=== PATIENT | male | born 1955 | race Two or more races ===

== ENCOUNTER 2020-08-04 08:49 | Day surgery (SDC) | payer MEDICARE, OTHER ==
[2020-07-31 11:03] VITALS: BMI 24.3
[~2020-08-04 08:49] MED LIST: LACTATED RINGERS 1,000 ML IV SCH; LIDOCAINE 1% (10MG/ML) FOR IV START INTRADERMA PRN
[2020-08-04 10:03] VITALS: TEMP 97
[2020-08-04] MEDS ORDERED: PROPOFOL 10 MG/ML 20 ML VIAL IV ONE (10:18)
--- NOTE | 2020-08-04 10:22 | P.GSHP ---
History of Present Illness H&P Date: 08/04/20 Chief Complaint: Screening, history of multiple polyps Patient here today for follow-up colonoscopy. Last colonoscopy 2 years ago. Patient had multiple polyps at that time with the largest polyp at the hepatic flexure measuring 1.5 cm. No rectal bleeding or melena. No bowel changes. Past Medical History Past Medical History: Cancer Additional Past Medical History / Comment(s): hx nonHodgkin's lymphoma-chemo recieved 1979,menangioma History of Any Multi-Drug Resistant Organisms: None Reported Additional Past Surgical History / Comment(s): colonoscopy,hernia repair x2,menangioma removed, spleenectomy Past Anesthesia/Blood Transfusion Reactions: No Reported Reaction Smoking Status: Current every day smoker - Past Family History Mother Family Medical History: No Reported History Brother(s) Family Medical History: Cancer Additional Family Medical History / Comment(s): colon Medications and Allergies Home Medications Medication Instructions Recorded Confirmed Type Ascorbic Acid [Vitamin C] 2,000 mg PO DAILY 07/31/20 07/31/20 History Cholecalciferol [Vitamin D3 (25 50 mcg PO DAILY 07/31/20 07/31/20 History Mcg = 1000 Iu)] Allergies Allergy/AdvReac Type Severity Reaction Status Date / Time codeine AdvReac "anxious, Verified 07/31/20 10:55 dont feel right" Surgical - Exam Vital Signs Temp Pulse Resp BP Pulse Ox 97 F L 79 20 135/83 98 08/04/20 09:55 08/04/20 09:55 08/04/20 09:55 08/04/20 09:55 08/04/20 09:55 Physical exam: General: Well-developed, well-nourished HEENT: Normocephalic, sclerae nonicteric Abdomen: Nontender, nondistended Extremities: No edema Neuro: Alert and oriented Assessment and Plan (1) History of colon polyps Narrative/Plan: Will proceed with colonoscopy Current Visit: Yes Status: Acute Code(s): Z86.010 - PERSONAL HISTORY OF COLONIC POLYPS SNOMED Code(s): 748746766
[2020-08-04] MEDS ORDERED: IV FLUID CONTINUATION 1,000 ML IV ONE (10:47)
--- NOTE | 2020-08-04 10:50 | P.PCN ---
Date of Procedure: 08/04/20 Procedure(s) Performed: PREOPERATIVE DIAGNOSIS: History of multiple colonic polyps POSTOPERATIVE DIAGNOSIS: Multiple colonic polyps, diverticulosis PROCEDURE: Colonoscopy with snare polypectomy ANESTHESIA: MAC SURGEON: Rishi Tapia M.D. SPECIMENS: Polyps ENDOSCOPIC PROCEDURE: The patient was placed on the endoscopy table in the left decubitus position. The Olympus colonoscope was inserted into the anus and passed under direct visualization to the base of the cecum. The appendiceal orifice was visualized. From that point the scope was slowly withdrawn inspecting all surfaces carefully. The patient had a polyp at the base of the cecum that was removed using the snare with cautery technique. 2 polyps were seen in the ascending colon and removed in a similar fashion. Another polyp was seen in the proximal transverse colon removed in a similar fashion. None of the polyps were larger than 7 mm in size. The remainder of the transverse descending sigmoid and rectum was normal with exception of left sided diverticulosis. Patient's prep was slightly suboptimal primarily on the right side of the colon. Digital rectal examination was normal. The patient was taken to the recovery room in stable condition per anesthesia guidelines. RECOMMENDATIONS: Resume diet. Follow-up colonoscopy 3 years.
[2020-08-04 11:21] VITALS: BP 125/78; PULSE 78; RESP 18
== END 2020-08-04 11:22 | disposition home or self-care (01) ==
LOC: ORWHC2ENDO 08:49
PROVIDERS: ATTEND Surgery
DX: Z12.11 Encounter for screening for malignant neoplasm of colon (principal); D12.0 Benign neoplasm of cecum; D12.2 Benign neoplasm of ascending colon; D12.3 Benign neoplasm of transverse colon; Z86.010 Personal history of colon polyps; K57.30 Diverticulosis of large intestine without perforation or abscess without bleeding; Z85.72 Personal history of non-Hodgkin lymphomas; Z92.21 Personal history of antineoplastic chemotherapy; Z90.81 Acquired absence of spleen; Z98.890 Other specified postprocedural states; F17.200 Nicotine dependence, unspecified, uncomplicated; Z80.0 Family history of malignant neoplasm of digestive organs; Z88.5 Allergy status to narcotic agent
CPT/HCPCS: 88305; 45385; J2704

== ENCOUNTER 2023-09-19 08:20 | Day surgery (SDC) | payer MEDICARE ==
[2023-09-15 08:48] VITALS: BMI 24.3
[2023-09-19 08:41] VITALS: RESP 16; TEMP 97
[2023-09-19] MEDS: IV FLUID CONTINUATION 1,000 ML IV ONE (08:52)
[2023-09-19] MEDS: LACTATED RINGERS 1,000 ML IV SCH (08:53)
[2023-09-19] MEDS ORDERED: PROPOFOL 10 MG/ML 20 ML VIAL IV ONE (09:12)
--- NOTE | 2023-09-19 09:16 | P.GSHP ---
History of Present Illness H&P Date: 09/19/23 Chief Complaint: History of colon polyps 67-year-old male here for colonoscopy. Last colonoscopy 3 years ago. History of numerous colon polyps in the past. No bowel complaints. Past Medical History Past Medical History: Cancer Additional Past Medical History / Comment(s): hx nonHodgkin's lymphoma-chemo recieved 1979,menangioma History of Any Multi-Drug Resistant Organisms: None Reported Additional Past Surgical History / Comment(s): colonoscopy,hernia repair x2,menangioma removed, spleenectomy, lasic surgery Past Anesthesia/Blood Transfusion Reactions: No Reported Reaction Additional Past Anesthesia/Blood Transfusion Reaction / Comment(s): no blood transfusion Smoking Status: Current every day smoker - Past Family History Mother Family Medical History: No Reported History Brother(s) Family Medical History: Cancer Additional Family Medical History / Comment(s): colon Medications and Allergies Home Medications Medication Instructions Recorded Confirmed Type Ascorbic Acid [Vitamin C] 2,000 mg PO DAILY 07/31/20 09/15/23 History Cholecalciferol [Vitamin D3 (25 50 mcg PO DAILY 07/31/20 09/15/23 History Mcg = 1000 Iu)] Allergies Allergy/AdvReac Type Severity Reaction Status Date / Time codeine AdvReac "anxious, Verified 09/19/23 08:35 dont feel right" Surgical - Exam Vital Signs Temp Pulse Resp BP Pulse Ox 97 F L 74 16 144/75 95 09/19/23 08:40 09/19/23 08:40 09/19/23 08:40 09/19/23 08:40 09/19/23 08:40 Physical exam: General: Well-developed, well-nourished HEENT: Normocephalic, sclerae nonicteric Abdomen: Nontender, nondistended Extremities: No edema Neuro: Alert and oriented Assessment and Plan (1) History of colon polyps Narrative/Plan: Will proceed with colonoscopy at this time. Current Visit: No Status: Acute Code(s): Z86.010 - PERSONAL HISTORY OF COLONIC POLYPS SNOMED Code(s): 999625500
--- NOTE | 2023-09-19 09:35 | P.PCN ---
Date of Procedure: 09/19/23 Procedure(s) Performed: PREOPERATIVE DIAGNOSIS: History of colon polyps POSTOPERATIVE DIAGNOSIS: Cecal polyp, ascending colon polyp x 2, diverticulosis PROCEDURE: Colonoscopy with snare polypectomy ANESTHESIA: MAC SURGEON: Rishi Tapia M.D. SPECIMENS: Polyps ENDOSCOPIC PROCEDURE: The patient was placed on the endoscopy table in the left decubitus position. The Olympus colonoscope was inserted into the anus and passed under direct visualization to the base of the cecum. The appendiceal orifice was visualized. From that point the scope was slowly withdrawn inspecting all surfaces carefully. There was a small polyp at the base of the cecum that was removed using the snare with cautery technique. There were 2 polyps in the ascending colon 1 was sessile measuring 1.5 cm and removed in a piecemeal fashion and the other was small. Will were removed with snare with cautery. The larger polyp had a clip deployed to prevent postop bleeding. The remainder of the transverse descending sigmoid and rectum appeared normal. There was scattered diverticulosis. Patient's prep was slightly suboptimal today. Digital rectal examination was normal. The patient was taken to the recovery room in stable condition per anesthesia guidelines. RECOMMENDATIONS: Await biopsy results. Recommend repeat colonoscopy 3 years.
[2023-09-19 09:57] VITALS: BP 128/76; PULSE 70
== END 2023-09-19 10:17 | disposition home or self-care (01) ==
LOC: ORWHC2ENDO 08:20
PROVIDERS: ATTEND Surgery
DX: D12.0 Benign neoplasm of cecum (principal); D12.2 Benign neoplasm of ascending colon; F17.200 Nicotine dependence, unspecified, uncomplicated; Z86.010 Personal history of colon polyps; Z85.72 Personal history of non-Hodgkin lymphomas; Z98.890 Other specified postprocedural states; Z88.5 Allergy status to narcotic agent; Z79.899 Other long term (current) drug therapy
CPT/HCPCS: 88305; 45385; J2704